=== PATIENT | female | born 1960 | race Caucasian/White ===

== ENCOUNTER 2018-07-22 07:53 | Day surgery (SDC) | payer OTHER ==
[2018-07-22] MEDS ORDERED: PROPOFOL 20 ML (11:10)
[2018-07-22] MEDS ORDERED: FENTAnyl 50 MCG/ML VIAL (11:10)
== END 2018-07-22 12:28 | disposition home or self-care (01) ==
LOC: GIL 07:53
DX: Z12.11 Encounter for screening for malignant neoplasm of colon (principal); K64.8 Other hemorrhoids
CPT/HCPCS: 45378